=== PATIENT | female | born 1955 | race African-American/Black ===

== ENCOUNTER 2019-03-18 22:07 | Emergency (ER) | payer OTHER ==
--- NOTE | 2019-03-18 22:28 | ER Document Report ---
ED Medical Screen (RME) - General Chief Complaint: Leg Pain Stated Complaint: LEG PAIN Time Seen by Provider: 03/18/19 22:19 Primary Care Provider: LIS GARZA MD [Primary Care Provider] - Follow up as needed TRAVEL OUTSIDE OF THE [place] IN LAST 30 DAYS: No - HPI Notes: 03/18/19 22:26 64-year-old female with history of hypertension to the emergency department with complaints of bilateral leg pain that is been going on for several days. She states that she notices the pain mainly when she gets up from sitting to standing. She states that the pain feels like squeezing of her muscles and cramping. She notes that she is on Lasix and HCTZ. She usually takes a potassium supplement but has not recently been taking it. She also states that she has not taken her blood pressure medicine today. She denies any chest pain, shortness of breath, new leg swelling, or any other complaints. Performed a brief medical screening exam on the patient and determined she will need further evaluation and management by main side provider. I have ordered initial labs to aid in expediting her care this evening. - Related Data Allergies/Adverse Reactions: aspirin Allergy (Verified 03/18/19 22:17) Home Medications: Losartan 100mg. Amlodipine 10mg. HCTZ 25mg. Furosemide 10mg. Estra 1mg/noreth 0.5mg half tab Physical Exam - Vital signs Vitals: Temp Pulse Resp BP Pulse Ox 98.2 F 73 20 172/51 H 97 03/18/19 22:12 03/18/19 22:12 03/18/19 22:12 03/18/19 22:12 03/18/19 22:12 Course - Vital Signs Vital signs: Temp Pulse Resp BP Pulse Ox 98.2 F 73 20 172/51 H 97 03/18/19 22:12 03/18/19 22:12 03/18/19 22:12 03/18/19 22:12 03/18/19 22:12 Doctor's Discharge - Discharge Referrals: LIS GARZA MD [Primary Care Provider] - Follow up as needed
[2019-03-18 22:44] LABS: ABSOLUTE EOSINOPHILS # (AUTO) 0.1 10^3/uL (0.0-0.6); ABSOLUTE LYMPHOCYTES (AUTO) 1.9 10^3/uL (0.5-4.7); ABSOLUTE MONOCYTES (AUTO) 0.5 10^3/uL (0.1-1.4); ABSOLUTE NEUT (AUTO) 3.9 10^3/uL (1.7-8.2); BASOPHILS % (AUTO) 0.7 % (0-2); EOSINOPHILS % (AUTO) 1.3 % (0-6); HEMATOCRIT 39.5 % (36.0-47.0); HEMOGLOBIN 13.6 g/dL (12.0-15.5); LYMPHOCYTES % (AUTO) 29.5 % (13-45); MEAN CORPUSCULAR HEMOGLOBIN 30.2 pg (27.0-33.4); MEAN CORPUSCULAR HGB CONC 34.6 g/dL (32.0-36.0); MEAN CORPUSCULAR VOLUME 87 fl (80-97); MONOCYTES % (AUTO) 8.3 % (3-13); PLATELET COUNT 266 10^3/uL (150-450); RED BLOOD COUNT 4.52 10^6/uL (3.72-5.28); RED CELL DISTRIBUTION WIDTH 13.5 % (11.5-14.0); SEGMENTED NEUTROPHILS % (AUTO) 60.2 % (42-78); TOTAL CELLS COUNTED % (AUTO) 100 %; WHITE BLOOD COUNT 6.5 10^3/uL (4.0-10.5)
[2019-03-18 23:03] LABS: ALBUMIN 3.4 g/dL (3.5-5.0); ALKALINE PHOSPHATASE 84 U/L (38-126); ANION GAP 6 (5-19); ASPARTATE AMINO TRANSFERASE 21 U/L (14-36); BILIRUBIN,DIRECT 0.3 mg/dL (0.0-0.4); BILIRUBIN,TOTAL 0.3 mg/dL (0.2-1.3); BLOOD UREA NITROGEN 16 mg/dL (7-20); CALCIUM 9.8 mg/dL (8.4-10.2); CARBON DIOXIDE 32 mmol/L (22-30); CHLORIDE 103 mmol/L (98-107); GLUCOSE 144 mg/dL (75-110); POTASSIUM 3.3 mmol/L (3.6-5.0); TOTAL PROTEIN 6.8 g/dL (6.3-8.2)
--- NOTE | 2019-03-19 02:02 | ER Document Report ---
ED Extremity Problem, Lower - General Chief Complaint: Leg Pain Stated Complaint: LEG PAIN Time Seen by Provider: 03/18/19 22:19 Primary Care Provider: LIS GARZA MD [Primary Care Provider] - Follow up as needed Mode of Arrival: Ambulatory Information source: Patient Notes: Patient complains of pain that radiate down the anterior and posterior thigh areas. Denies any trauma denies any back pain. Patient states she has known arthritis in her left knee and believes she has arthritis in her back as well. Patient takes Tylenol 1000 mg twice a day for control and treatment of her were her radicular pains in her legs. Patient reports that her reason for being here is that her son would not allow her to stay home without being seen by the doctor chelita. TRAVEL OUTSIDE OF THE [place] IN LAST 30 DAYS: No - HPI Patient complains to provider of: Pain Location: Thigh Occurred: Other - Chronic radicular pain over several weeks. Where: Other - When patient is resting she does not have the pain. She reports that when she is active is when she noticed the radicular pain going down the front and back of both legs. The pain does not travel beyond the thigh areas. Quality of pain: Achy Severity: Moderate Pain Level: 3 Recent injury: No Exacerbated by: Walking - Related Data Allergies/Adverse Reactions: aspirin Allergy (Verified 03/18/19 22:17) Home Medications: Losartan 100mg. Amlodipine 10mg. HCTZ 25mg. Furosemide 10mg. Estra 1mg/noreth 0.5mg half tab Past Medical History - Social History Smoking Status: Current Some Day Smoker Lives with: Family Family History: Reviewed & Not Pertinent Patient has suicidal ideation: No Patient has homicidal ideation: No Review of Systems - Review of Systems Musculoskeletal: See HPI Physical Exam - Vital signs Vitals: Temp Pulse Resp BP Pulse Ox 98.2 F 73 20 172/51 H 97 03/18/19 22:12 03/18/19 22:12 03/18/19 22:12 03/18/19 22:12 03/18/19 22:12 Interpretation: Normal - General General appearance: Appears well, Alert, Other - Obese none In distress: None - HEENT Head: Normocephalic, Atraumatic Eyes: Normal Pupils: PERRL - Respiratory Respiratory status: No respiratory distress Chest status: Nontender Breath sounds: Normal Chest palpation: Normal - Cardiovascular Rhythm: Regular Heart sounds: Normal auscultation Murmur: No - Abdominal Inspection: Normal Distension: No distension Bowel sounds: Normal Tenderness: Nontender Organomegaly: No organomegaly - Back Back: Normal, Nontender, Other - Negative straight leg raise bilateral. Sensation in lower extremities normal full range of motion of all lower extremity major joints. - Extremities General upper extremity: Normal inspection, Nontender, Normal color, Normal ROM, Normal temperature General lower extremity: Normal inspection, Nontender, Normal color, Normal ROM, Normal temperature, Normal weight bearing. No: Hodan's sign - Neurological Neuro grossly intact: Yes Cognition: Normal Orientation: AAOx4 Gerardo Coma Scale Eye Opening: Spontaneous Hewitt Coma Scale Verbal: Oriented Hewitt Coma Scale Motor: Obeys Commands Hewitt Coma Scale Total: 15 Speech: Normal Motor strength normal: LUE, RUE, LLE, RLE Sensory: Normal - Psychological Associated symptoms: Normal affect, Normal mood - Skin Skin Temperature: Warm Skin Moisture: Dry Skin Color: Normal Course - Re-evaluation Re-evalutation: 03/19/19 04:10 Patient states she is ready to go home. Offered her steroids to take for her sciatica. Patient refused patient prefers to continue to take Tylenol as she is doing and will follow-up with Dr. Garza - Vital Signs Vital signs: Temp Pulse Resp BP Pulse Ox 98.2 F 73 20 172/51 H 97 03/18/19 22:12 03/18/19 22:12 03/18/19 22:12 03/18/19 22:12 03/18/19 22:12 03/19/19 04:07 Discussed with patient results of x-ray of her LS spine, and it shows that she has multilevel degenerative joint disease and has anterior listhesis at L5 over L6. There is no fracture seen. In summary significant arthropathy and lumbar spine. I offered patient to take steroids and she prefers not to. She states she will continue taking Tylenol twice a day as needed and she plans to follow- up with Dr. Garza. - Laboratory Result Diagrams: 03/18/19 22:30 03/18/19 22:30 Laboratory results interpreted by me: 03/18/19 22:30 Potassium 3.3 L Carbon Dioxide 32 H Glucose 144 H Magnesium 2.4 H Albumin 3.4 L - Diagnostic Test Radiology reviewed: Image reviewed, Reports reviewed Discharge - Discharge Clinical Impression: Sciatica neuralgia Qualifiers: Laterality: bilateral Qualified Code(s): M54.31 - Sciatica, right side; M54.32 - Sciatica, left side Condition: Stable Disposition: HOME, SELF-CARE Additional Instructions: Sciatica Your symptoms suggest "sciatica." The pain of sciatica typically radiates down the leg. Numbness in the foot or calf may also occur. Sciatica is caused by irritation of the sciatic nerve or its branches. The irritation can be due to a herniated disk in the spine, swelling and inflammation in the muscles surrounding the sciatic nerve, or direct injury of the nerve itself. Most cases of sciatica will resolve with medical treatment. Bed rest is usually recommended initially. Surgery is only necessary when the condition will not improve with rest and antiinflammatory medication. Muscle relaxers are often given if muscle soreness is present. A CAT scan of the back may be performed if a herniated disk is suspected. Re-examination is necessary if you develop increasing numbness, localized weakness in the foot or ankle, or if the pain does not respond to rest. Referrals: LIS GARZA MD [Primary Care Provider] - Follow up as needed
[2019-03-19] MEDS ORDERED: POTASSIUM CHLORIDE 10 MEQ TABLET.ER PO ONE (02:19)
--- NOTE | 2019-03-19 03:12 | RADIOLOGY REPORT (SQ) ---
EXAM DESCRIPTION: XR LUMBAR SPINE ANTEROPOSTERIOR, LATERAL, AND OBLIQUES COMPLETED DATE/TME: 03/19/2019 02:18 CLINICAL HISTORY: 64 years, Female, bilat anterior/posterior radiculopathy COMPARISON: None. NUMBER OF VIEWS: 5 TECHNIQUE: 5 views lumbar spine LIMITATIONS: None. FINDINGS: Osteopenia. 6 lumbar type vertebral bodies are noted. Vertebral body height is preserved. Minimal anterolisthesis of L5 with respect to L6 likely secondary to advanced facet arthropathy. Alignment is otherwise preserved. Facet arthropathy throughout the lumbar spine. No discrete pars defects. Degenerative changes sacroiliac joints bilaterally IMPRESSION: 6 lumbar type vertebral bodies are incidentally noted. Osteopenia. Multilevel degenerative change copyright 2010 [employer]- All Rights Reserved
[2019-03-19 05:26] VITALS: BP 132/66
== END 2019-03-19 04:47 | disposition home or self-care (01) ==
LOC: ER 22:07
DX: M54.31 Sciatica, right side (principal); M79.604 Pain in right leg; M79.605 Pain in left leg; F17.200 Nicotine dependence, unspecified, uncomplicated; Z79.899 Other long term (current) drug therapy
CPT/HCPCS: 36415; 72110; 80053; 83735; 85025; 99283